=== PATIENT | female | born 1990 | race Caucasian/White ===

== ENCOUNTER 2017-08-18 09:51 | Emergency (ER) | payer OTHER ==
[2017-08-18] MEDS ORDERED: ACETAMINOPHEN 325 MG TABLET PO STA (12:06)
--- NOTE | 2017-08-18 12:11 | ED Physician Documentation ---
History of Present Illness - Stated complaint Stated Complaint: FACE SWOLLEN/SORE - Chief complaint Chief Complaint: General - History obtained from History obtained from: Patient - History of Present Illness Timing: Yesterday - Additonal information Additional information: The patient is a 27-year-old female who presents with a sore on her left upper lip that she first noticed yesterday, and it has increased today. It is ulcerated, with surrounding swelling of the lip. She also reports general myalgias and fatigue as well as nasal congestion, sore throat, and nausea. She denies cough, abdominal pain, or dysuria. She is currently at 16 weeks gestation. She denies any prior history of cold sores or fever blisters. Review of Systems Constitutional: reports: Fever (low grade), Myalgias, Fatigue Eyes: denies: Irritation Ears: denies: Ear pain Nose: reports: Congestion Throat: reports: Sore throat Cardiac: denies: Chest pain / pressure Respiratory: denies: Dyspnea, Cough GI: reports: Nausea, Vomiting (once). 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 - Present Medications Home Medications: Ambulatory Orders Medication Instructions Recorded Confirmed Acyclovir 200 mg PO 5XD #50 capsule 08/18/17 Pnv95/Ferrous Fumarate/FA 1 each PO 08/18/17 [ Tablet] - Allergies Allergies/Adverse Reactions: Allergies Allergy/AdvReac Type Severity Reaction Status Date / Time No Known Drug Allergies Allergy Verified 08/18/17 10:09 - Social History Does the pt smoke?: No Smoking Status: Never smoker Does the pt drink ETOH?: No Does the pt have substance abuse?: No PD ED PE NORMAL - Vitals Vital signs reviewed: Yes (normal) - General General: Alert and oriented X 3, Well developed/nourished - HEENT HEENT: Atraumatic, EOMI, Ears normal, Moist mucous membranes, Pharynx benign, Other (There is an ulceration of the buccal surface of the left upper lip, with surrounding swelling of the left and associated tenderness to palpation. This has the appearance of a herpes lesion.) - Neck Neck: Supple, no meningeal sign, No adenopathy - Cardiac Cardiac: RRR, No murmur - Respiratory Respiratory: No respiratory distress, Clear bilaterally - Abdomen Abdomen: Soft, Non tender, Other (Gravid uterus, with normal heart tones, rate 159.) - Back Back: No CVA TTP - Derm Derm: Other (Herpetic-appearing lesion left upper lip.) - Extremities Extremities: No edema, No calf tenderness / cord - Neuro Neuro: Alert and oriented X 3, No motor deficit, Normal speech Results - Vitals Vitals: Oxygen O2 Source Room air - Labs Labs: Laboratory Tests 08/18/17 08/18/17 10:15 10:50 HSV I DNA Quant (PCR) DETECTED A HSV II DNA Quant (PCR) NOT DETECTED HSV (PCR) Source UPPER LIP Influenza A (Rapid) Negative Influenza B (Rapid) Negative Influenza Types A,B Ag - PD MEDICAL DECISION MAKING - ED course Complexity details: reviewed results, re-evaluated patient, considered differential, d/w patient ED course: The patient's presentation is most consistent with herpes simplex virus type I, involving the upper lip. There is no apparent pharyngeal involvement. She has a constellation of other symptoms, including low-grade fever, myalgias, fatigue , headache, sore throat, and nausea, all consistent with a viral syndrome. Influenza swab is negative. Herpes culture of the lip lesion was sent to the lab, and results are pending. Treatment in the emergency department included administration of acetaminophen 650 mg orally. She is being discharged with a prescription for acyclovir. I discussed with her the presumptive diagnosis, antiviral treatment and outpatient follow-up, as well as potentially worrisome signs or symptoms that should prompt reevaluation in the emergency department. Departure - Departure Disposition: 01 Home, Self Care Clinical Impression: Oral herpes simplex infection, Viral syndrome Condition: Stable Instructions: ED Herpes Simplex Virus Type 1, ED Viral Syndrome Follow-Up: [facility] [place] [Provider Group] Prescriptions: Acyclovir 200 mg PO 5XD #50 capsule Comments: You can use Tylenol every 4-6 hours as needed for fever or discomfort. You can use acyclovir as prescribed for 10 days. Follow up with your primary physician or color maker formulator within 1-2 weeks. Call to schedule appointment. Return to the emergency department if you develop increasing facial swelling, worsening fatigue, or otherwise worsening symptoms. Forms: Activity restrictions Discharge Date/Time: 08/18/17 12:24
[2017-08-18 12:20] VITALS: BP 114/62
[2017-08-20 05:57] LABS: HSV 2 DNA NOT DETECTED; SOURCE UPPER LIP
== END 2017-08-18 12:24 | disposition home or self-care (01) ==
LOC: ED 09:51
DX: B00.1 Herpesviral vesicular dermatitis (principal); B34.9 Viral infection, unspecified
CPT/HCPCS: 87275; 87276; 87529; 99283; A9270